=== PATIENT | female | born 1960 | race African-American/Black ===

== ENCOUNTER 2017-04-24 08:03 | Emergency (ER) | payer BC, OTHER ==
[~2017-04-24] VITALS: Ht 175.3 cm; Wt 77.1 kg
[~2017-04-24 08:03] MED LIST: ASPI-482; CHOL100013; CIPR500T94 PO; LOSA100T6; SIMV40TA; TRAM50TA; VARE1TAB5; mega red
[2017-04-24 08:13] VITALS: BP 149/111
--- NOTE | 2017-04-24 08:30 | RAD ---
Indication: Pulling injury, pain. Injury occurred 4 days ago. Technique: 3 views of the left shoulder are submitted for review. No comparison is available. Findings: There is no fracture or dislocation. There is osteoarthritis at the left AC joint. Impression: Negative for fracture.
--- NOTE | 2017-04-24 08:38 | PHYS DOC ---
Past Medical History Past Medical History: High Cholesterol, Hypertension Past Surgical History: Other Additional Past Surgical Histo: shoulder Alcohol Use: None Drug Use: None Adult General Chief Complaint Chief Complaint: SHOULDER INJURY HPI HPI Patient is a 57 year old female with history of hypertension, high cholesterol , who presents with mild left anterior shoulder pain that began 5 days ago after lifting a carton of milk. Patient denies the pain radiating to the left upper extremity. Denies any numbness or tingling to the left upper extremity. Review of Systems Review of Systems Constitutional: Denies fever or chills [] Musculoskeletal: Left shoulder pain Integument: Denies rash or skin lesions [] Neurologic: Denies headache, focal weakness or sensory changes [] All other systems were reviewed and found to be within normal limits, except as documented in this note. Allergies Allergies Allergies Coded Allergies Type Severity Reaction Last Updated Verified No Known Drug Allergies 05/27/13 No Physical Exam Physical Exam Constitutional: Well developed, well nourished, no acute distress, non-toxic appearance. [] Skin: Warm, dry, no erythema, no rash. [] Back: No tenderness, no CVA tenderness. [] Extremities: Left shoulder with no obvious deformity. Slight tenderness on the left anterior left shoulder. Full range of motion to the left shoulder including abduction and adduction. +2 left radial pulse. Cap refill less than 2 seconds left upper extremity. Adequate radial, medial and ulnar sensation to the left upper extremity. Neurologic: Alert and oriented X 3, normal motor function, normal sensory function, no focal deficits noted. [] Psychologic: Affect normal, judgement normal, mood normal. [] Current Patient Data Vital Signs Vital Signs Date Time Temp Pulse Resp B/P (MAP) Pulse Ox O2 Delivery O2 Flow Rate FiO2 04/24/17 08:13 97.8 79 18 100 Room Air 97.8 EKG EKG [] Radiology/Procedures Radiology/Procedures []PROCEDURE: SHOULDER 2+V LEFT Indication: Pulling injury, pain. Injury occurred 4 days ago. Technique: 3 views of the left shoulder are submitted for review. No comparison is available. Findings: There is no fracture or dislocation. There is osteoarthritis at the left AC joint. Impression: Negative for fracture. DICTATED and SIGNED BY: ZAHRA MENENDEZ MD DATE: 04/24/17 08 CC: KAYLEIGH LIMA APRN; NON,STAFF ~ Course & Med Decision Making Course & Med Decision Making Pertinent Labs and Imaging studies reviewed. (See chart for details) Patient is in the ED with left shoulder strain after lifting milk. Left shoulder x-rays interpreted by radiologist are negative for any acute findings. D/C with diclofenac, medrol dose pack and cyclobenzaprine. Follow-up with Ortho in one week. Dragon Disclaimer Dragon Disclaimer This electronic medical record was generated, in whole or in part, using a voice recognition dictation system. Departure Departure Impression: Primary Impression: Left shoulder strain Disposition: HOME, SELF-CARE Condition: STABLE Referrals: NON,STAFF (PCP) YURIY BISHOP MD Follow-up with the provided doctor in one week Patient Instructions: Shoulder Sprain Additional Instructions: You were seen for left shoulder strain. Your left shoulder x-rays were negative for any acute findings. Ice elevate the extremity. Follow-up with the provided orthopedic doctor in one week. Take the prescribed medicines as ordered. Scripts Cyclobenzaprine Hcl (CYCLOBENZAPRINE HCL) 10 Mg Tablet 1 TAB PO TID, #30 TAB Prov: KAYLEIGH LIMA APRN 04/24/17 Diclofenac Sodium (DICLOFENAC SODIUM) 50 Mg Tablet.dr 1 TAB PO BID, #30 TAB 0 Refills Prov: KAYLEIGH LIMA APRN 04/24/17 Methylprednisolone (MEDROL) 4 Mg Tab.ds.pk 1 PKG PO UD, #1 PKG Prov: KAYLEIGH LIMA APRN 04/24/17 Problem Qualifiers Primary Impression: Left shoulder strain Encounter type: initial encounter Qualified Codes: S46.912A - Strain of unspecified muscle, fascia and tendon at shoulder and upper arm level, left arm , initial encounter KAYLEIGH LIMA APRN Apr 24, 2017 08:38
[2017-04-24] MEDS ORDERED: DICL50TA4 PO (08:40)
[2017-04-24] MEDS ORDERED: METH4TAB2 PO (08:40)
[2017-04-24] MEDS ORDERED: CYCL10TA2 PO (08:40)
[2017-04-24] MEDS ORDERED: KETOROLAC 60 MG/2 ML INJ. IM ONE (08:45)
[2017-04-24] MEDS ORDERED: DEXAMETHASONE SOD PHOS 20 MG/5 ML VIAL. IM ONE (08:45)
== END 2017-04-24 09:00 | disposition home or self-care (01) ==
LOC: ER 08:03
DX: S46.912A Strain of unspecified muscle, fascia and tendon at shoulder and upper arm level, left arm, initial encounter (principal); E78.00 Pure hypercholesterolemia, unspecified; I10 Essential (primary) hypertension; Z98.890 Other specified postprocedural states; X50.0XXA Overexertion from strenuous movement or load, initial encounter; Y93.89 Activity, other specified; Y99.8 Other external cause status; Y92.89 Other specified places as the place of occurrence of the external cause
CPT/HCPCS: 73030; 96372; 99284; J1100; J1885

== ENCOUNTER 2017-07-12 12:42 | Emergency (ER) | payer OTHER ==
[2017-07-12 13:55] LABS: ADD MAN DIFF? NO
[2017-07-12 13:57] LABS: BASO # 0.1 x10^3/uL (0.0-0.2); BASO % 1 % (0-3); EOS # 0.2 x10^3/uL (0.0-0.7); EOS % 2 % (0-3); HEMATOCRIT 42.7 % (36.0-47.0); HEMOGLOBIN 14.3 g/dL (12.0-15.5); LYMPH # 2.5 x10^3/uL (1.0-4.8); LYMPH % 21 % (24-48); MEAN CORPUSCULAR HEMOGLOBIN 31 pg (25-35); MEAN CORPUSCULAR HGB CONC 34 g/dL (31-37); MEAN CORPUSCULAR VOLUME 93 fL (79-100); MONO # 0.8 x10^3/uL (0.0-1.1); MONO % 7 % (0-9); NEUT # 8.2 x10^3uL (1.8-7.7); NEUT % 70 % (31-73); PLATELET COUNT 238 x10^3/uL (140-400); RED CELL DISTRIBUTION WIDTH 13.6 % (11.5-14.5); WHITE BLOOD COUNT 11.7 x10^3/uL (4.0-11.0)
[2017-07-12 14:04] LABS: BILIRUBIN,URINE NEGATIVE (NEG); CLARITY,URINE CLEAR; COLOR,URINE YELLOW; GLUCOSE,URINE NEGATIVE (NEG); NITRITE,URINE NEGATIVE (NEG); PROTEIN,URINE NEGATIVE (NEG-TRACE); UROBILINOGEN,URINE 0.2 mg/dL (0.2 mg/dL)
[2017-07-12 14:14] LABS: ANION GAP 8 (6-14); BLOOD UREA NITROGEN 20 mg/dL (7-20); BUN/CREATININE RATIO 22 (6-20); CALCIUM 9.9 mg/dL (8.5-10.1); CARBON DIOXIDE 31 mmol/L (21-32); CHLORIDE 99 mmol/L (98-107); CREATININE 0.9 mg/dL (0.6-1.0); GFR 77.5; GLUCOSE 73 mg/dL (70-99); POTASSIUM 3.6 mmol/L (3.5-5.1); SODIUM 138 mmol/L (136-145)
[2017-07-12 14:18] LABS: ALBUMIN 3.8 g/dL (3.4-5.0); ALBUMIN/GLOBULIN RATIO 0.8 (1.0-1.7); ALK PHOS 88 U/L (46-116); ALT (SGPT) 22 U/L (14-59); AST (SGOT) 17 U/L (15-37); MAGNESIUM 1.9 mg/dL (1.8-2.4); TOTAL BILIRUBIN 0.2 mg/dL (0.2-1.0); TOTAL PROTEIN 8.5 g/dL (6.4-8.2)
[2017-07-12 14:20] LABS: NT-PRO BNP 53 pg/mL (0-124); TROPONINI < 0.017 ng/mL (0.000-0.055)
[2017-07-12 14:23] LABS: THYROID STIM HORMONE (TSH) 0.977 uIU/mL (0.358-3.74)
[2017-07-12 14:26] LABS: BACTERIA,URINE 0 /HPF (0-FEW); RBC,URINE 0 /HPF (0-2); SQUAMOUS EPITHELIAL CELL,UR OCC /LPF; WBC,URINE OCC /HPF (0-4)
== END 2017-07-12 15:39 | disposition home or self-care (01) ==
LOC: ER 15:39
DX: R00.2 Palpitations (principal); E78.00 Pure hypercholesterolemia, unspecified; I10 Essential (primary) hypertension
CPT/HCPCS: 36415; 80053; 81001; 83735; 83880; 84443; 84484; 85025; 93005; 99285-25

== ENCOUNTER 2019-01-07 09:25 | Emergency (ER) | payer OTHER ==
[~2019-01-07] VITALS: Ht 170.2 cm; Wt 72.6 kg
[~2019-01-07 09:25] MED LIST changes: +AMLO2.5T5 PO; +ATOR10TA60 PO; +CYCL10TA2 PO; +DICL50TA4 PO; +HYDR12.58 PO; +LOSA100T14; -LOSA100T6; +METH4TAB2 PO
[2019-01-07 10:00] VITALS: BP 147/103
--- NOTE | 2019-01-07 10:16 | RAD ---
Examination: 3 views of the left shoulder HISTORY: History of pain from lifting boxes COMPARISON: 04/24/2017 FINDINGS: The humerus head is within the glenoid. Moderate joint space loss identified in the glenohumeral joint, acromioclavicular joint. There is no acute fracture or dislocation identified. IMPRESSION: Moderate degenerative changes glenohumeral joint, acromioclavicular joint. Electronically signed by: David Bocanegra MD (01/07/2019 10:13 AM) [place] [id number]
[2019-01-07] MEDS ORDERED: METH4TAB2 PO (11:28)
[2019-01-07] MEDS ORDERED: CYCL10TA2 PO (11:28)
[2019-01-07] MEDS ORDERED: DICL50TA2 PO (11:28)
--- NOTE | 2019-01-07 11:28 | PHYS DOC ---
Past Medical History Past Medical History: High Cholesterol, Hypertension Past Surgical History: Other Additional Past Surgical Histo: shoulder Alcohol Use: None Drug Use: None Adult General Chief Complaint Chief Complaint: SHOULDER INJURY HPI HPI Patient is a 58 year old female with history of hypertension who presents to the ED today complaining of 10 out of 10 left shoulder pain that began yesterday after lifting boxes at work, patient is employed at [employer]. Patient states the pain is worse on range of motion. Describes the pain as sharp and intermittent. Review of Systems Review of Systems Constitutional: Denies fever or chills [] Musculoskeletal: Reports left shoulder pain Integument: Denies rash or skin lesions [] Neurologic: Denies headache, focal weakness or sensory changes [] All other systems were reviewed and found to be within normal limits, except as documented in this note. Allergies Allergies Allergies Coded Allergies Type Severity Reaction Last Updated Verified No Known Drug Allergies 05/27/13 No Physical Exam Physical Exam Constitutional: Well developed, well nourished, no acute distress, non-toxic appearance. [] Skin: Warm, dry, no erythema, no rash. [] Back: No tenderness, no CVA tenderness. [] Extremities: Left shoulder with no obvious deformity, tenderness on palpation of the left scapula, full range of motion to the left shoulder, left upper extremity. Adequate radial, medial, ulnar sensation to the left upper extremity. +2 left radial pulse. Cap refill less than 2 seconds the left fingers. Neurologic: Alert and oriented X 3, normal motor function, normal sensory function, no focal deficits noted. [] Psychologic: Affect normal, judgement normal, mood normal. [] Current Patient Data Vital Signs Vital Signs Date Time Temp Pulse Resp B/P (MAP) Pulse Ox O2 Delivery O2 Flow Rate FiO2 01/07/19 10:00 98.1 67 16 147/103 (118) 99 Room Air 98.1 EKG EKG [] Radiology/Procedures Radiology/Procedures []PROCEDURE: SHOULDER 2+V LEFT Examination: 3 views of the left shoulder HISTORY: History of pain from lifting boxes COMPARISON: 04/24/2017 FINDINGS: The humerus head is within the glenoid. Moderate joint space loss identified in the glenohumeral joint, acromioclavicular joint. There is no acute fracture or dislocation identified. IMPRESSION: Moderate degenerative changes glenohumeral joint, acromioclavicular joint. Electronically signed by: David Bocanegra MD (01/07/2019 10:13 AM) [id number] DICTATED and SIGNED BY: DAVID BOCANEGRA MD DATE: 01/07/19 1013 Course & Med Decision Making Course & Med Decision Making Pertinent Labs and Imaging studies reviewed. (See chart for details) This is a 58-year-old female patient presenting to the ED today with left shoulder pain that began yesterday after lifting boxes at work, left shoulder x- rays interpreted by radiologist were noted for DJD otherwise no acute findings. Sling provided in the ED RN. Neurovascular exam done post-sling application is normal. Ice elevation encouraged. Discharged with diclofenac, cyclobenzaprine, and Medrol Dosepak. Dragon Disclaimer Dragon Disclaimer This electronic medical record was generated, in whole or in part, using a voice recognition dictation system. Departure Departure Impression: Primary Impression: Left shoulder strain Disposition: 01 HOME, SELF-CARE Condition: STABLE Referrals: ANTON LAGUERRE MD (PCP) SHYLA ECHAVARRIA MD follow-up in one week Patient Instructions: Shoulder Sprain Additional Instructions: You were evaluated for left shoulder strain, try to ice and elevate the extremity. Wear the provided sling as needed for comfort. Do not keep your left upper extremity in the sling for more than an hour, try and take it out and take it through full range of motion to prevent frozen shoulder. Take the prescribed medications as ordered. Scripts Cyclobenzaprine Hcl (CYCLOBENZAPRINE HCL) 10 Mg Tablet 1 TAB PO TID, #30 TAB Prov: KAYLEIGH LIMA APRN 01/07/19 Diclofenac Potassium (DICLOFENAC POTASSIUM) 50 Mg Tablet 1 TAB PO BID, #10 TAB 0 Refills Prov: KAYLEIGH LIMA APRN 01/07/19 Methylprednisolone (MEDROL) 4 Mg Tab.ds.pk 1 PKG PO UD, #1 PKG Prov: KAYLEIGH LIMA APRN 01/07/19 Problem Qualifiers Primary Impression: Left shoulder strain Encounter type: initial encounter Qualified Codes: S46.912A - Strain of unspecified muscle, fascia and tendon at shoulder and upper arm level, left arm, initial encounter KAYLEIGH LIMA APRN Jan 07, 2019 11:28
== END 2019-01-07 11:36 | disposition home or self-care (01) ==
LOC: ER 09:25
DX: S46.812A Strain of other muscles, fascia and tendons at shoulder and upper arm level, left arm, initial encounter (principal); E78.00 Pure hypercholesterolemia, unspecified; I10 Essential (primary) hypertension; X50.0XXA Overexertion from strenuous movement or load, initial encounter; Y93.89 Activity, other specified; Y92.89 Other specified places as the place of occurrence of the external cause; Y99.0 Civilian activity done for income or pay
CPT/HCPCS: 73030; 99284